=== PATIENT | male | born 1940 | race African-American/Black ===

== ENCOUNTER 2022-04-20 09:28 | Inpatient (IN) | payer BC, MEDICARE ==
[~2022-04-20] VITALS: Ht 188 cm; Wt 77.1 kg
[~2022-04-20 09:28] MED LIST: ASPI-1160; ATOR20TA; GLIP5TAB3; HYDR25TA; RAMI2.5C54
[2022-04-20] MEDS ORDERED: NITROGLYCERIN 50MG PREMIX 250 ML IV ONE (09:45)
[2022-04-20] MEDS ORDERED: ASPIRIN 81MG TABLET PO ONE (09:45)
[2022-04-20] MEDS ORDERED: NITROGLYCERIN OINT 1GM/INCH UDPKT TD ONE (09:45)
[2022-04-20] MEDS ORDERED: FUROSEMIDE 40MG/4ML VIAL IV ONE (09:45)
[2022-04-20] MEDS ORDERED: NITROGLYCERIN 50MG PREMIX 250ML IV ONE (10:00)
[2022-04-20 10:05] LABS: BG BASE EXCESS -4.6 mmol/L (-2.0-2.0); BG CARBOXYHEMOGLOBIN 0.8 % (0.5-1.5); BG DEOXYHEMOGLOBIN 7.1 % (0.0-5.0); BG FRACTION INSPIRED OXYGEN 40; BG HCO3 ACT 19.6 mmol/L (22.0-26.0); BG METHEMOGLOBIN 0.6 % (0.0-1.5); BG OXYGEN SATURATION 92.8 % (92.0-98.5); BG OXYHEMOGLOBIN 91.5 % (94.0-97.0); BG PCO2 33.9 mmHg (35.0-45.0); BG PO2 70.1 mmHg (75.0-100.0); BG SAMPLE SITE RIGHT RADIAL; BG VENT MODE MASK - BIPAP
[2022-04-20 11:07] LABS: BASOPHILS % 0.8 % (0.0-2.0); EOSINOPHILS % 8.7 % (0.0-5.0); HEMOGLOBIN. 14.4 g/dL (14.0-18.0); LYMPHOCYTES % 29.5 % (20.0-50.0); MEAN CORPUSCULAR HEMOGLOBIN 29.2 pg (28.0-32.0); MEAN CORPUSCULAR VOLUME 89.1 fL (80.0-94.0); MEAN PLATELET VOLUME 10.3 fl (7.4-10.4); MONOCYTES % 13.6 % (2.0-8.0); NEUTROPHILS % 47.4 % (40.0-76.0); PLATELET 268 x1000/uL (130-400); RED BLOOD CELL COUNT 4.94 mill/uL (4.7-6.1); RED CELL DISTRIBUTION WIDTH 14.8 % (11.6-14.6)
[2022-04-20 11:32] LABS: CHLORIDE 113 mEq/L (98-107)
[2022-04-20] MEDS ORDERED: ENOXAPARIN 100MG/ML SYR SUBCUT ONE (12:00)
[2022-04-20] MEDS ORDERED: ONDANSETRON HCL 4MG/2ML INJ IV PRN (15:45)
[2022-04-20] MEDS ORDERED: GUAIFENESIN 200MG/10ML SUGAR FREE UDC PO PRN (15:45)
[2022-04-20] MEDS ORDERED: ZOLPIDEM TARTRATE 5MG TABLET PO PRN (15:45)
[2022-04-20] MEDS ORDERED: DIPHENHYDRAMINE 50MG/ML VIAL IV PRN (15:45)
[2022-04-20] MEDS ORDERED: CLONIDINE 0.1MG TABLET PO PRN (15:45)
[2022-04-20] MEDS ORDERED: ACETAMINOPHEN 325MG TABLET PO PRN ×2 (15:45)
[2022-04-20] MEDS ORDERED: IPRATROPIUM/ALBUTEROL 0.5-3(2.5)MG/3ML NEB NEB PRN (15:45)
[2022-04-20] MEDS ORDERED: HYDRALAZINE 20MG/ML VIAL IV PRN (15:45)
[2022-04-20] MEDS ORDERED: MAGNESIUM/ALUMINUM HYDROXIDE/SIMETHICONE 30ML UDC PO PRN (15:45)
[2022-04-20] MEDS ORDERED: DEXTROSE 50% WATER 50ML SYRINGE IV PRN (15:45)
[2022-04-20] MEDS ORDERED: LORAZEPAM 0.5MG TABLET PO PRN (15:45)
[2022-04-20] MEDS: METFORMIN HCL 500MG TABLET PO SCH (17:00)
[2022-04-20 17:12] LABS: INR 1.2; PROTHROMBIN TIME 12.3 sec (9.6-11.0)
[2022-04-20] MEDS: INSULIN LISPRO 100 UNITS/ML SUBCUT SCH ×2 (17:39→21:38)
[2022-04-20] MEDS: FUROSEMIDE 40MG/4ML VIAL IVP SCH (17:42)
[2022-04-20] MEDS: POTASSIUM CHLORIDE 20MEQ TABLET SR PO SCH (17:42)
[2022-04-20] MEDS: REPAGLINIDE 1MG TABLET PO SCH (17:42)
[2022-04-20] MEDS: BLOOD SUGAR DIAGNOSTIC STRIP TEST SCH ×2 (17:43→21:44)
[2022-04-20] MEDS: NAPROXEN 375MG TABLET PO SCH (21:00)
[2022-04-20] MEDS: CARVEDILOL 6.25 MG TABLET PO SCH (21:43)
[2022-04-20] MEDS: ATORVASTATIN CALCIUM 40MG TABLET PO SCH (21:44)
[2022-04-20] MEDS: ENOXAPARIN 100MG/ML SYR SUBCUT SCH (21:45)
[2022-04-20] MEDS: SODIUM CHLORIDE 0.9% INJ 3ML FLUSH IVF SCH (22:32)
[2022-04-20] MEDS: NITROGLYCERIN OINT 1GM/INCH UDPKT TD SCH (22:33)
[2022-04-21 05:44] LABS: BASOPHILS % 1.3 % (0.0-2.0); EOSINOPHILS % 4.9 % (0.0-5.0); HEMATOCRIT. 45.5 % (42.0-52.0); HEMOGLOBIN. 14.8 g/dL (14.0-18.0); MEAN CORPUSCULAR VOLUME 89.2 fL (80.0-94.0); MEAN PLATELET VOLUME 9.6 fl (7.4-10.4); MONOCYTES % 13.1 % (2.0-8.0); NEUTROPHILS % 65.7 % (40.0-76.0); PLATELET 267 x1000/uL (130-400); RED CELL DISTRIBUTION WIDTH 14.7 % (11.6-14.6)
[2022-04-21 06:10] LABS: CHLORIDE 110 mEq/L (98-107)
[2022-04-21] MEDS: SODIUM CHLORIDE 0.9% INJ 3ML FLUSH IVF SCH ×3 (06:20→21:07)
[2022-04-21 06:29] LABS: PHOSPHORUS 3.7 mg/dL (2.5-4.9)
[2022-04-21] MEDS: NITROGLYCERIN OINT 1GM/INCH UDPKT TD SCH ×3 (06:43→21:07)
[2022-04-21] MEDS: BLOOD SUGAR DIAGNOSTIC STRIP TEST SCH ×4 (06:43→20:23)
[2022-04-21] MEDS: INSULIN LISPRO 100 UNITS/ML SUBCUT SCH ×4 (07:00→21:06)
[2022-04-21] MEDS: REPAGLINIDE 1MG TABLET PO SCH ×3 (07:00→17:19)
[2022-04-21] MEDS: NAPROXEN 375MG TABLET PO SCH ×2 (09:00→21:07)
[2022-04-21 09:22] VITALS: BP 153/77
[2022-04-21] MEDS ORDERED: COR6 PO (09:29)
[2022-04-21] MEDS ORDERED: METF625T PO (09:31)
[2022-04-21] MEDS ORDERED: EMPA25TA MT (09:32)
[2022-04-21] MEDS ORDERED: NAPR-679 PO (09:35)
[2022-04-21] MEDS ORDERED: REPA2TAB8 PO (09:35)
[2022-04-21] MEDS ORDERED: REPA1TAB5 MT ×2 (09:35)
[2022-04-21] MEDS ORDERED: SITA100T11 PO (09:37)
[2022-04-21] MEDS ORDERED: PRED-276 MT (09:37)
[2022-04-21] MEDS ORDERED: ASPI-1497 PO (09:38)
[2022-04-21] MEDS ORDERED: IRBE300T17 PO (09:38)
[2022-04-21 09:56] VITALS: BP 153/77
[2022-04-21] MEDS: CARVEDILOL 6.25 MG TABLET PO SCH ×2 (10:17→21:06)
[2022-04-21] MEDS: METFORMIN HCL 500MG TABLET PO SCH ×2 (10:17→17:19)
[2022-04-21] MEDS: LOSARTAN POTASSIUM 100 MG TABLET PO SCH (10:17)
[2022-04-21] MEDS: POTASSIUM CHLORIDE 20MEQ TABLET SR PO SCH ×2 (10:17→17:19)
[2022-04-21] MEDS: ENOXAPARIN 100MG/ML SYR SUBCUT SCH (10:18)
[2022-04-21] MEDS: ASPIRIN 81MG EC TABLET PO SCH (10:18)
[2022-04-21] MEDS: PREDNISONE 10MG TABLET PO SCH (10:18)
[2022-04-21] MEDS: FUROSEMIDE 40MG/4ML VIAL IVP SCH ×2 (10:18→17:19)
[2022-04-21 12:00] VITALS: BP 110/73
[2022-04-21] MEDS: AMLODIPINE 10MG TABLET PO SCH (12:00)
[2022-04-21] MEDS ORDERED: ALBUTEROL (0.083%) 2.5MG/3ML NEB HHN PRN (13:45)
[2022-04-21] MEDS ORDERED: IPRATROPIUM BROMIDE (0.02%) 0.5MG/2.5ML NEB HHN PRN (13:45)
[2022-04-21 16:00] VITALS: BP 123/65
[2022-04-21 20:00] VITALS: BP 150/73
[2022-04-21] MEDS: ATORVASTATIN CALCIUM 40MG TABLET PO SCH (21:06)
[2022-04-21] MEDS: ENOXAPARIN 80MG/0.8ML SYR SUBCUT SCH (21:07)
[2022-04-22] VITALS: BP 154/82
[2022-04-22 04:00] VITALS: BP 153/71
[2022-04-22] MEDS: BLOOD SUGAR DIAGNOSTIC STRIP TEST SCH (05:55)
[2022-04-22] MEDS: SODIUM CHLORIDE 0.9% INJ 3ML FLUSH IVF SCH (06:00)
[2022-04-22] MEDS: NITROGLYCERIN OINT 1GM/INCH UDPKT TD SCH (06:18)
[2022-04-22] MEDS: METFORMIN HCL 500MG TABLET PO SCH (06:18)
[2022-04-22] MEDS: REPAGLINIDE 1MG TABLET PO SCH (06:18)
[2022-04-22] MEDS: INSULIN LISPRO 100 UNITS/ML SUBCUT SCH (06:19)
[2022-04-22 06:45] LABS: BASOPHILS % 0.9 % (0.0-2.0); HEMOGLOBIN. 15.1 g/dL (14.0-18.0); LYMPHOCYTES % 17.3 % (20.0-50.0); MEAN CORPUSCULAR HEMOGLOBIN 28.9 pg (28.0-32.0); MEAN CORPUSCULAR VOLUME 87.9 fL (80.0-94.0); MEAN PLATELET VOLUME 10.3 fl (7.4-10.4); MONOCYTES % 14.9 % (2.0-8.0); NEUTROPHILS % 61.9 % (40.0-76.0); PLATELET 278 x1000/uL (130-400); RED BLOOD CELL COUNT 5.24 mill/uL (4.7-6.1); RED CELL DISTRIBUTION WIDTH 14.9 % (11.6-14.6)
[2022-04-22 06:53] LABS: CHLORIDE 107 mEq/L (98-107)
[2022-04-22 08:00] VITALS: BP 150/79
[2022-04-22] MEDS: FUROSEMIDE 40MG/4ML VIAL IVP SCH (08:27)
[2022-04-22] MEDS: PREDNISONE 10MG TABLET PO SCH (08:28)
[2022-04-22] MEDS: ASPIRIN 81MG EC TABLET PO SCH (08:28)
[2022-04-22] MEDS: NAPROXEN 375MG TABLET PO SCH (08:28)
[2022-04-22] MEDS: POTASSIUM CHLORIDE 20MEQ TABLET SR PO SCH (08:28)
[2022-04-22] MEDS: CARVEDILOL 6.25 MG TABLET PO SCH (08:28)
[2022-04-22] MEDS: LOSARTAN POTASSIUM 100 MG TABLET PO SCH (08:28)
[2022-04-22] MEDS: AMLODIPINE 10MG TABLET PO SCH (08:29)
[2022-04-22] MEDS: ENOXAPARIN 80MG/0.8ML SYR SUBCUT SCH (08:29)
== END 2022-04-22 11:40 | disposition home or self-care (01) | DRG 280 ==
LOC: ER 09:35 → EDBEDREQSVC 11:12 → EDBEDREQ 15:21 → MICUSO 18:10 → 7EST 04-21 08:59
PROVIDERS: ADMIT Internal Medicine; ATTEND Internal Medicine
PROC: 5A09357 Assistance with Respiratory Ventilation, Less than 24 Consecutive Hours, Continuous Positive Airway Pressure (ICD-10-PCS; principal; 2022-04-20)
DX: I21.4 Non-ST elevation (NSTEMI) myocardial infarction (principal); I50.41 Acute combined systolic (congestive) and diastolic (congestive) heart failure; J18.9 Pneumonia, unspecified organism; J96.01 Acute respiratory failure with hypoxia; I11.0 Hypertensive heart disease with heart failure; Z20.822 Contact with and (suspected) exposure to COVID-19; E11.9 Type 2 diabetes mellitus without complications; E78.00 Pure hypercholesterolemia, unspecified; I25.10 Atherosclerotic heart disease of native coronary artery without angina pectoris; G89.29 Other chronic pain; I25.2 Old myocardial infarction; Z95.0 Presence of cardiac pacemaker; Z87.891 Personal history of nicotine dependence; Z79.4 Long term (current) use of insulin
CPT/HCPCS: 36415; 36600; 71045; 80048; 80053; 82375; 82805; 82962; 83735; 83880; 84100; 84443; 84484; 85025; 87426; 93005; 93306; 93970; 94660; 99291; C9803; J0360; J1650; J1815; J1940; J3490; J7512